=== PATIENT | female | born 1980 | race Caucasian/White ===

== ENCOUNTER 2022-07-13 21:32 | Emergency (ER) | payer BC ==
[~2022-07-13] VITALS: Ht 162.6 cm; Wt 89.5 kg
[2022-07-13 21:45] VITALS: BP 163/108
[2022-07-13] MEDS ORDERED: NO HOME MEDS (21:52)
[2022-07-13] MEDS ORDERED: morphine 2 MG/ML inj. syringe IV PRN (22:40)
[2022-07-13] MEDS ORDERED: LIDOcaine 1% W/epiNEPHrine 1:100,000 20ml vial SQ ONE (23:15)
[2022-07-14] MEDS ORDERED: HYDR-3973 PO (00:29)
== END 2022-07-14 01:09 | disposition home or self-care (01) ==
LOC: ER 21:33
DX: S52.92XA Unspecified fracture of left forearm, initial encounter for closed fracture (principal); W18.39XA Other fall on same level, initial encounter; Y93.89 Activity, other specified; Y92.89 Other specified places as the place of occurrence of the external cause; Y99.8 Other external cause status
CPT/HCPCS: 73100; 73110; 96374; 99284; J2270